=== PATIENT | male | born 1940 | race Caucasian/White ===

== ENCOUNTER 2022-06-21 12:27 | Outpatient (CLI) | payer MEDICARE, OTHER | END 2022-06-21 12:28 | disposition home or self-care (01) | LOC: TBSIIMAG 12:27 | PROVIDERS: ATTEND Surgery | DX: M47.22 Other spondylosis with radiculopathy, cervical region (principal) | CPT/HCPCS: 72050; 72141 ==

== ENCOUNTER 2022-11-16 10:21 | Outpatient (CLI) | payer MEDICARE, OTHER ==
[2022-11-16 11:46] LABS: #Basophils 0.1 10x3/uL (0.0-0.2); #Eosinphils 0.5 10x3/uL (0.0-0.5); #Monocytes 0.7 10x3/uL (0.0-1.1); #Neutrophils 3.3 10x3/uL (1.5-8.4); %Eosinophils 8.3 % (0.0-6.0); %Lymphocytes 22.8 % (18.0-47.0); %Monocytes 11.2 % (0.0-10.0); %Neutrophils 56.5 % (40.0-75.0); Hemoglobin 13.1 g/dL (13.5-17.5); Mean Corpuscular HGB CONC 33.9 g/dL (32.0-36.0); Mean Corpuscular Hemoglobin 31.4 pg (27.0-33.0); Mean Corpuscular Volume 92.8 fl (81.2-95.1); Mean Platelet Volume 9.5 fl (7.4-10.4); Platelet Count 267 10x3/uL (150-450); RBC Distribution Width 14.4 % (11.5-14.5); Red Blood Cell (RBC) Count 4.17 10x6/uL (4.32-5.72); White Blood Cell (WBC) Count 5.9 10x3/uL (3.5-10.5)
== END 2022-11-16 10:22 | disposition home or self-care (01) ==
LOC: LABBT 10:21
PROVIDERS: ATTEND Orthopaedic Surgery Hand Surgery
DX: Z01.818 Encounter for other preprocedural examination (principal); G56.03 Carpal tunnel syndrome, bilateral upper limbs
CPT/HCPCS: 85025; 93005; 93010

== ENCOUNTER 2022-11-20 08:03 | Day surgery (SDC) | payer MEDICARE, OTHER ==
[2022-11-19 10:01] VITALS: BMI 28.7
[2022-11-20] MEDS ORDERED: Neomycin-Polymyxin 1 ML AMP ONE (08:54)
[2022-11-20] MEDS ORDERED: Betamet Acet/Betamet Na Ph 30 MG/5 ML VIAL ONE (08:54)
[2022-11-20] MEDS ORDERED: Bacitracin Zinc Ointment 30 gm TUBE ONE (08:54)
[2022-11-20] MEDS ORDERED: Bupivacaine PF 0.5% 30 ML VIAL ONE (08:54)
[2022-11-20] MEDS ORDERED: CEFAZOLIN 2 GM VIAL ONE (13:10)
[2022-11-20] MEDS ORDERED: fentaNYL PF 100 MCG/2 ML SYRINGE ONE (13:10)
[2022-11-20] MEDS ORDERED: Ondansetron PF 4 MG/2 ML Vial ONE (13:10)
[2022-11-20] MEDS ORDERED: PROPOFOL 40 ML ONE (13:10)
[2022-11-20] MEDS ORDERED: Sodium Chloride 0.9% 100 ML ONE (13:10)
[2022-11-20] MEDS ORDERED: PROPOFOL 200 MG/20 ML VIAL ONE (13:22)
[2022-11-20] MEDS ORDERED: ePHEDrine 50 MG/ML VIAL ONE (13:22)
== END 2022-11-20 15:31 | disposition home or self-care (01) ==
LOC: SDC 08:03
PROVIDERS: ATTEND Orthopaedic Surgery Hand Surgery
PROC: 01N50ZZ Release Median Nerve, Open Approach (ICD-10-PCS; principal; 2022-11-20)
PROC: 01N50ZZ Release Median Nerve, Open Approach (ICD-10-PCS; 2022-11-20)
DX: G56.03 Carpal tunnel syndrome, bilateral upper limbs (principal); M62.541 Muscle wasting and atrophy, not elsewhere classified, right hand; M62.542 Muscle wasting and atrophy, not elsewhere classified, left hand; I10 Essential (primary) hypertension; E78.5 Hyperlipidemia, unspecified; N40.0 Benign prostatic hyperplasia without lower urinary tract symptoms; M10.9 Gout, unspecified; J45.909 Unspecified asthma, uncomplicated; Z85.048 Personal history of other malignant neoplasm of rectum, rectosigmoid junction, and anus; Z87.891 Personal history of nicotine dependence; Z79.82 Long term (current) use of aspirin; Z79.899 Other long term (current) drug therapy; Z93.3 Colostomy status
CPT/HCPCS: J0702; J2405; J2704; J3490; S0020